=== PATIENT | male | born 1980 | race Asian ===

== ENCOUNTER 2018-06-03 15:59 | Emergency (ER) | payer OTHER ==
[2018-06-03 16:24] VITALS: BP 127/73
[2018-06-03] MEDS ORDERED: TETANUS/DIPHTHERIA/PERTUSSIS 0.5 ML SYRINGE IM ONE (17:27)
[2018-06-03] MEDS ORDERED: LIDOCAINE 1%-EPI 1:100000 30 ML MDV SUBQ STA (17:43)
[2018-06-03] MEDS ORDERED: BACITRACIN OINT TOP STA (19:02)
--- NOTE | 2018-06-03 19:05 | ED Physician Documentation ---
History of Present Illness - Stated complaint Stated Complaint: R KNEE INJ - Chief complaint Chief Complaint: Laceration - Additonal information Additional information: hx from pt 37 male at work fell off ladder and hot knee on a bracket suffering a lac abrasion to arm as well no head neck chest abd injury tdap needs update Review of Systems Cardiac: denies: Chest pain / pressure GI: denies: Abdominal Pain Skin: reports: Laceration (s) Musculoskeletal: reports: Extremity pain Neurologic: denies: Head injury PD PAST MEDICAL HISTORY - Present Medications Home Medications: Ambulatory Orders Medication Instructions Recorded Confirmed No Known Home Medications [No 06/03/18 06/03/18 Known Home Medications] - Allergies Allergies/Adverse Reactions: Allergies Allergy/AdvReac Type Severity Reaction Status Date / Time No Known Drug Allergies Allergy Verified 06/03/18 16:24 PD ED PE NORMAL - Vitals Vital signs reviewed: Yes - Extremities Extremities: Other (approx 3 cm verticl lac along inf patellar region, no bone or tendon or jt capsule visible with careful inspection to the base, also no FB , and extensor mechanism intact, MSV intact) - Neuro Neuro: Alert and oriented X 3 Results - Vitals Vitals: Vital Signs - 24 hr 06/03/18 16:21 Temperature 36.9 C Heart Rate 83 Respiratory 16 Rate Blood Pressure 127/73 O2 Saturation 99 Oxygen O2 Source Room air Procedures - Laceration (location) R knee Length in cm: 3 Wound type: Linear Neurovascular status: Sensory intact, Motor intact Tendon involvement: Tendon intact Anesthesia: Lidocaine 1% with epi (8 cc) Wound Preparation: Irrigated copiously NS (by [employer]) Skin layer closure: Nylon, Size #-0 - enter number (4), Sutures - enter # (6) Other: Patient tolerated well, No complications, Neurovascular intact, Dressing applied, Tetanus booster given Complexity: Simple PD MEDICAL DECISION MAKING - Sepsis Event Vital Signs: Vital Signs - 24 hr 06/03/18 16:21 Temperature 36.9 C Heart Rate 83 Respiratory 16 Rate Blood Pressure 127/73 O2 Saturation 99 Oxygen O2 Source Room air Departure - Departure Disposition: 01 Home, Self Care Clinical Impression: Laceration Condition: Good Instructions: ED Laceration All Comments: Keep the wound clean. Apply antibiotic ointment twice a day Wear the brace to prevent bending the knee and popping the sutures out Even with good wound care some wound become infected. If you notice redness, swelling, drainage, streaking , excessive pain, or fever, come back to the ER Else sutures out in 10 days
== END 2018-06-03 19:24 | disposition home or self-care (01) ==
LOC: ED 15:59
DX: S81.011A Laceration without foreign body, right knee, initial encounter (principal); W11.XXXA Fall on and from ladder, initial encounter
CPT/HCPCS: 12002; 90471; 99283